=== PATIENT | female | born 1975 | race African-American/Black ===

== ENCOUNTER 2021-07-29 18:20 | Emergency (ER) | payer OTHER ==
[~2021-07-29] VITALS: Ht 160 cm; Wt 106.6 kg
[2021-07-29 20:23] VITALS: BP 167/108
== END 2021-07-29 20:24 | disposition home or self-care (01) ==
LOC: ER 18:20
DX: R52 Pain, unspecified (principal); T69.8XXA Other specified effects of reduced temperature, initial encounter; F12.90 Cannabis use, unspecified, uncomplicated; Y92.89 Other specified places as the place of occurrence of the external cause